=== PATIENT | female | born 1945 | race Caucasian/White ===

== ENCOUNTER 2016-10-01 15:04 | Inpatient (IN) | payer MEDICARE ==
[~2016-10-01] VITALS: Ht 157.5 cm; Wt 87.8 kg
[~2016-10-01 15:04] MED LIST: ADV250INH IH; ATOR20TA PO; DEXL60CA5 PO; LOSA100T29 PO; METO100T3 PO; ROPI0.252 PO; SODI354S PO; TIOT18CA3 IH; TRAZ-118 PO
[2016-10-01 15:32] VITALS: BP 167/78; PULSE 77; RESP 20; O2SAT 81
[2016-10-01] MEDS ORDERED: Alum-Mag Hydrox-Simeth 30 mL Suspension PO PRN (15:45)
[2016-10-01] MEDS ORDERED: Ondansetron 2 mg/mL 2 mL Inj IVPUSH PRN (15:45)
[2016-10-01] MEDS ORDERED: Polyethylene Glycol (PEG) 17 Gm Powder PO PRN (15:45)
[2016-10-01 15:46] VITALS: O2SAT 90
--- NOTE | 2016-10-01 15:53 | PCM.HPMED ---
Subjective Date of Service Oct 01, 2016 Primary Provider: Admitting Physician: Dom Osorio MD Primary Care Physician: Arsen Reyes DO Attending Physician: Dom Osorio MD Chief Complaint: Shortness of breath History of Present Illness: This is a 70 female with past medical history of COPD not on oxygen at home, hypertension, hyperlipidemia who presented initially to her primary care doctor complaining of shortness of breath for 3-4 days. Patient stated she recently had the flu and has been having hard time breathing. She stated she cannot walk more than a few steps without being short of breath. She increased her nebulizer treatment at home with no avail . She denied any chest pain, no fever, no chills. She endorses diarrhea for 2 days but has subsided since. No nausea, no vomiting but the oral intake has been poor over the last past 24 hours. At PCP office and was found to be hypoxic with an oxygen saturation in the mid 80s which improved with nebulizer and supplemental oxygen. PCP was unable to wean patient off oxygen. She would desaturate anytime she stands . She was sent to the hospital for direct admission Review of Systems: Review of systems is pertinent for shortness of breath as described above in history of present illness, diarrhea. Otherwise a comprehensive x 10 points is negative. Allergies Coded Allergies: No Known Drug Allergies (Verified Allergy, Unknown, 03/03/16) Home Medications Advair Diskus 50/250 i fuff inhaled BID , Dexlansoprazole 60 PO daily , Tiotropium 18 MCG inhaled daily, Losartan 100 PO daily, Metoprolol 100 PO BID , Dexilant, atorvastatin 40 PO daily , trazodon 100 mg PO QHS . ropinirole 0.25 daily PMH COPD, Hypertension, GERD, Hyperlipidemia Family History Primary history is reviewed and is noncontributory to the present illness Social History Hx Alcohol Use: Yes (OCCASSIONAL) Hx Substance Use: No Hx Tobacco Use: Yes (history of 100 years/ pack smoking) Living Arrangement: with Family Exam Vital Signs Vital Sign - Last Date Time Temp Pulse Resp B/P Pulse Ox O2 Delivery O2 Flow Rate FiO2 10/01/16 15:46 90 Nasal Cannula 2.00 10/01/16 15:32 36.6 77 20 167/78 Exam Gen./constitutional: Elderly female, in bed comfortably in no acute distress. Overweight HEENT: PERRL EOMI. Sclera is anicteric Neck: Supple, no JVD, no stridor, check is midline signs Mouth: Moist oral mucosa, no oral thrush Chest: Normal respiratory effort, no use of sensory muscles of respiration. Lungs: Decreased air entry bilaterally. No crackles. Bilateral expiratory wheeze. Heart: S1, S2 regular rate and written Abdomen: Soft nontender, nondistended, no palpable mass. Extremities: No edema, no cyanosis, no calf tenderness Neuro : Awake alert and oriented 3. Grossly nonfocal Skin: Normal turgor: No rash, no ulcers Lab and Diagnostics Labs CBC, metabolic panel, magnesium level ordered and are pending X-Rays, CTs and MRIs Chest x-ray done at primary care's office reviewed : No infiltrate or pneumonia Assessment & Plan 1. Acute respiratory failure with hypoxia 2. COPD exacerbation Chronic medical problems Hypertension Hyperlipidemia GERD 71 years old with sore COPD was sent to the hospital from primary care doctor's office for direct admission for COPD exacerbation and acute respiratory failure with hypoxia. Telemetry monitoring . Supplemental oxygen to keep O2 saturation ideally round 92-95 %. DuoNeb nebulizer every 6 hours Methylprednisolone e IV every 8 hours. Chest surgery was done showed no acute disease. Therefore no need for antibiotics Obtain CBC, metabolic panel, magnesium. IV hydration with normal sinus 75 mm per hour by 1 L. Patient looks dehydrated and PO intake has been quite poor in the past 24 hours Home medications reviewed and reconciled. Subcutaneous heparin subcutaneous for DVT prophylaxis Prophylaxis. Hospital stay of 2-3 is anticipated and recovery is expected GI Prophylaxis: Proton Pump Inhibitor VTE Prophylaxis: Sub-Q Heparin (Unfractionated) Resuscitation Status: CPR: Attempt Resuscitation Time spent 75 minutes Dom Osorio MD Oct 01, 2016 15:53
[2016-10-01] MEDS ORDERED: MECL-114 PO (16:06)
[2016-10-01] MEDS ORDERED: BUPR100T8 PO (16:06)
[2016-10-01] MEDS ORDERED: IBUP200C PO (16:06)
[2016-10-01] MEDS ORDERED: NALT50TA PO (16:06)
[2016-10-01] MEDS ORDERED: NIFE90TA31 PO (16:06)
[2016-10-01 16:33] LABS: BASOPHILS % (AUTO) 0.3 % (0-3); EOSINOPHILS % (AUTO) 0.1 % (0-5); MONOCYTES % (AUTO) 4.9 % (4-12); Mean Corpuscular Hemoglobin 30.1 pg (27.0-35.0); Mean Corpuscular Volume 92.9 fL (81-100); NEUTROPHILS % (AUTO) 74.9 % (40-74); Platelet Count 346 bil/L (150-400)
[2016-10-01] MEDS: Lactated Ringer's 1,000 ML IV SCH (16:46)
[2016-10-01] MEDS: MethylprednisoLONE Sodium Succinate 40 mg/mL Inj IVPUSH SCH (16:46)
[2016-10-01 17:20] LABS: Magnesium 2.1 mg/dL (1.6-2.6)
--- NOTE | 2016-10-01 17:55 | NUR ---
Admit: [place] [facility] [place] 1530 [place]. Ambulated to bed. O2 Sats RA 81%, applied 2L oxygen. Patient complained of lightheadedness and SOB. O2 sats increase to 89-90%. IVF infusing. Alert & oriented. Oriented to room and call light system. Admit and medication reconciliation completed. Requested [id number] to bring in patients own CPAP. Bed rails up x 2, bed in low and locked position, non-skid socks on for safety. Observed steady gait when assisting to BR. Asked patient to continue to call for help with assistance to BR. Patient agreed.
[2016-10-01 18:17] VITALS: BP 145/85; PULSE 76; RESP 18; O2SAT 90
[2016-10-01 18:29] LABS: APPEARANCE,URINE CLOUDY (CLEAR,HAZY); COLOR,URINE YELLOW (YELLOW); OCCULT BLOOD,URINE TRACE (NEGATIVE); UROBILINOGEN,URINE NORMAL (NORMAL)
[2016-10-01] MEDS ORDERED: Albuterol-Ipratropium 3 mL Inhalation Solution NEB SCH (20:30)
[2016-10-01 20:32] VITALS: BP 129/75; PULSE 80; RESP 18; O2SAT 93
[2016-10-01] MEDS: Fluticasone-Salmererol 250-50 Inhaler INHALATION SCH (22:24)
[2016-10-02] VITALS (8 sets, daily range): BP systolic 128–144; BP diastolic 69–83; PULSE 65–84; RESP 18; O2SAT 92–94
[2016-10-02] MEDS: MethylprednisoLONE Sodium Succinate 40 mg/mL Inj IVPUSH SCH ×2 (00:09→08:57)
--- NOTE | 2016-10-02 05:36 | NUR ---
Shift Note Assumed pt care at 2300, pt a/o x4 able to make needs known, uses CPAP with 02 at HS, on cpox sats 92-94%, pt refused nebs treatment tonight, qhrly checks done, call light in reach.
[2016-10-02] MEDS: Lactated Ringer's 1,000 ML IV SCH (05:39)
[2016-10-02] MEDS: Fluticasone-Salmererol 250-50 Inhaler INHALATION SCH ×2 (08:57→20:39)
--- NOTE | 2016-10-02 16:14 | NUR ---
Ambulation Valerie communication from MD to ambulate with Pt. VS prior were in typical range for pt. BP 150/80, HR 70's, SpO2 at 94% when at rest. Ambulated with pt around the unit with CPOX monitoring. SpO2 dropped to 81-84% with activity. Pt having SOB but able to tolerate. Pt declines needing to rest for a moment. Steady and strong on feet. VS when back in room: BP 80/60 for initial sitting, retook and shown 160/80. Consecutive BP were back to baseline, unsure if initial was an error or true and pt stabilized. HR and SpO2 back to baseline. Spoke with pt, reports that yesterday getting up to the bathroom she was very out of breath and satting in low 80s. Instructed to report SOB episodes to staff and MD updated on condition.
--- NOTE | 2016-10-02 16:58 | PCM.PNMED ---
Subjective Date of Service Oct 02, 2016 Subjective This is a 70 female with past medical history of COPD not on oxygen at home, hypertension, hyperlipidemia who presented initially to her primary care doctor complaining of shortness of breath for 3-4 days. This morning, she still reports getting "out of breath" going to the bathroom. She attributes her dyspnea to a GERD flare. She is not dyspneic at rest. She does not have fever, chills, or cough. She had nausea and vomiting prior to her current symptoms. Exam Vital Signs Vital Sign - Last Date Time Temp Pulse Resp B/P Pulse Ox O2 Delivery O2 Flow Rate FiO2 10/02/16 13:19 36.6 65 18 143/83 92 Room Air 10/02/16 00:30 2.00 Intake and Output 10/01/16 10/01/16 10/02/16 Cumulative From/Thru 15:00 23:00 07:00 10/01/16 15:36 - 10/02/16 06:39 Intake Total 200 ml 1465 ml 1665 ml Output Total 150 ml 350 ml 500 ml Balance 50 ml 1115 ml 1165 ml Intake Oral 200 ml 500 ml 700 ml IV Total 965 ml 965 ml Output Urine Total 150 ml 350 ml 500 ml # Bowel Movements 0 0 Exam Gen./constitutional: Elderly female, in bed comfortably in no acute distress. Overweight HEENT: PERRL EOMI. Sclera is anicteric Neck: Supple, no JVD, no stridor, check is midline signs Mouth: Moist oral mucosa, no oral thrush Chest: Normal respiratory effort, no use of sensory muscles of respiration. Lungs: Decreased air entry bilaterally. No rales, rhonchi, or wheezing. Heart: S1, S2 regular rate and rhythm Abdomen: Soft nontender, nondistended, no palpable mass. Extremities: No edema, no cyanosis, no calf tenderness Neuro : Awake alert and oriented 3. Grossly nonfocal Skin: Normal turgor: No rash, no ulcers IVs and Medications Medications Reviewed: Medications were reviewed in detail Lab and Diagnostics Result Diagram: 10/01/16 1618 10/01/16 1618 X-Rays, CTs and MRIs Chest x-ray done at primary care's office reviewed : No infiltrate or pneumonia Assessment & Plan 71 years old with sore COPD was sent to the hospital from primary care doctor's office for direct admission for COPD exacerbation and acute respiratory failure with hypoxia. 1. Acute respiratory failure with hypoxia and COPD exacerbation, present on admission. -Chest x-ray showed no acute disease. Therefore, no need for antibiotics for a pulmonary infection. -Telemetry monitoring -Supplemental oxygen to keep O2 saturation ideally round 88-92%. -DuoNeb nebulizer every 6 hours as needed for dyspnea or wheezing -Methylprednisolone IV switched to prednisone 40 mg once daily -Continue Advair inhaler and Spiriva inhaler -Home oxygen evaluation tomorrow 2. Urinary tract infection, acute, present on admission. -UA showed positive nitrite and moderate leukocyte esterase. Urine culture preliminary growth for gram negative rods. -Start Keflex 500 mg BID -IV hydration with normal sinus 75 mm per hour by 1 L. Patient looks dehydrated and PO intake has been quite poor in the past 24 hours Chronic medical problems Hypertension Hyperlipidemia GERD Vertigo Subcutaneous heparin subcutaneous for DVT prophylaxis Prophylaxis. Possible discharge home tomorrow pending home oxygen evaluation and continue improvement. GI Prophylaxis: Proton Pump Inhibitor VTE Prophylaxis: Sub-Q Heparin (Unfractionated) VTE Mechanical Devices: Intermittant Pneumatic CD Resuscitation Status: CPR: Attempt Resuscitation Attending Statement The patient was seen and examined together with Resident / House-staff on and I agree with the history, exam and plan as outlined in the note above. Racquel Rodriguez DO Oct 02, 2016 16:38 Mike Goldberg Oct 02, 2016 17:46
[2016-10-02] MEDS ORDERED: Albuterol-Ipratropium 3 mL Inhalation Solution NEB PRN (17:00)
[2016-10-03 00:32] VITALS: BP 134/61; PULSE 59; RESP 18; O2SAT 90
[2016-10-03 05:23] VITALS: BP 129/61; PULSE 61; RESP 18; O2SAT 91
--- NOTE | 2016-10-03 06:27 | NUR ---
O2 saturation 94% on RA in bed, CPAP used on RA retaining sat > 92%.
[2016-10-03] MEDS ORDERED: Pantoprazole 40 mg ER24 Tablet PO SCH (06:30)
[2016-10-03 07:13] LABS: BASOPHILS % (AUTO) 0.2 % (0-3); EOSINOPHILS % (AUTO) 0.2 % (0-5); MONOCYTES % (AUTO) 8.5 % (4-12); Mean Corpuscular Hemoglobin 30.5 pg (27.0-35.0); NEUTROPHILS % (AUTO) 65.3 % (40-74); Platelet Count 333 bil/L (150-400)
[2016-10-03 07:22] VITALS: PULSE 54
[2016-10-03] MEDS ORDERED: NIFEdipine 30 mg ER24 Tablet PO SCH (08:30)
[2016-10-03] MEDS ORDERED: predniSONE 20 mg Tablet PO SCH (08:30)
[2016-10-03] MEDS ORDERED: Tiotropium 18mcg/Cap 5 Capsule Inhaler Kit INHALATION SCH ×2 (08:30→10:30)
[2016-10-03 09:38] VITALS: BP 132/68; PULSE 63; RESP 18; O2SAT 93
[2016-10-03] MEDS: Fluticasone-Salmererol 250-50 Inhaler INHALATION SCH (10:19)
[2016-10-03] MEDS ORDERED: Fluticasone-Salmererol 250-50 Inhaler INHALATION SCH (10:30)
[2016-10-03] MEDS ORDERED: PRED-508 PO (12:17)
[2016-10-03] MEDS ORDERED: CEPH500C PO (12:19)
--- NOTE | 2016-10-03 12:22 | PCM.DIMED ---
Olivia Chang DO 10/03/16 1222: Discharge Instructions Date of Service Oct 03, 2016 Dates of Hospitalization Oct 01, 2016 at 15:04 Discharge Diagnosis Discharge Diagnosis 1. Acute respiratory failure with hypoxia and COPD exacerbation, present on admission. 2. Urinary tract infection, acute, present on admission. Medication Instructions Please finish your Prednisone as prescribed. Please finish your antibiotics as prescribed. Diet Heart Healthy Activity Limited until seen by PCP Call your provider Fever or Chills, Shortness of breath Patient Instructions Please follow up with your PCP in about 1 week. Please check on the IV site that was injured. It does not look infected at this time but if there is more redness, it if starts to feel hot to the touch, if you develop fevers, chills, or severe pain in that arm seek medication attention immediately. Please complete your antibiotics. Follow-up Provider: Arsen Reyes DO Follow-up with PCP in: 1 week James Travis MD 10/03/16 1259: Discharge Instructions Attending's Statement The patient was seen and examined together with Dr. Chang on 10/03 and I agree with the history, exam and plan as outlined in the note above. Olivia Chang DO Oct 03, 2016 12:22 James Travis MD Oct 03, 2016 12:59
--- NOTE | 2016-10-03 12:59 | NUR ---
Discharge Patient departed unit via wheelchair, accompanied by staff and family. Patient alert and oriented. Patient able to ambulate independently on unit-O2 sats initially dropped to 82% then gradually increased to 89% on room air, O2 sats increased to 93% at rest on room air. Patient nutritional intake, output, oxygen saturations, mobility and gas exchange adequate at discharge. Patient does not qualify for home O2. Discharge instructions/medications reviewed with patient/family prior to discharge. All questions addressed. Patient belongings, and discharge instructions in hand. Prescriptions electronically sent to [facility] in [place].
--- NOTE | 2016-10-03 19:12 | PCM.DC.MED ---
Discharge Summary Date of Service Oct 03, 2016 Dates of Hospitalization Date of Hospital Admission Oct 01, 2016 at 15:04 Date of Discharge: Oct 03, 2016 Providers: Admitting Physician: Dom Osorio MD Primary Care Physician: Arsen Reyes DO Attending Physician: Dom Osorio MD Diagnosis at Time of Discharge Diagnosis at Time of Discharge 1. Acute respiratory failure with hypoxia and COPD exacerbation, present on admission. 2. Urinary tract infection, acute, present on admission. Procedures XRay, CTs & MRIs Chest x-ray done at primary care's office reviewed : No infiltrate or pneumonia Brief History From Dr. Osorio's H and P: "This is a 70 female with past medical history of COPD not on oxygen at home, hypertension, hyperlipidemia who presented initially to her primary care doctor complaining of shortness of breath for 3-4 days. Patient stated she recently had the flu and has been having hard time breathing. She stated she cannot walk more than a few steps without being short of breath. She increased her nebulizer treatment at home with no avail . She denied any chest pain, no fever, no chills. She endorses diarrhea for 2 days but has subsided since. No nausea, no vomiting but the oral intake has been poor over the last past 24 hours. At PCP office and was found to be hypoxic with an oxygen saturation in the mid 80s which improved with nebulizer and supplemental oxygen. PCP was unable to wean patient off oxygen. She would desaturate anytime she stands . She was sent to the hospital for direct admission." Hospital Course 71 years old with sore COPD was sent to the hospital from primary care doctor's office for direct admission for COPD exacerbation and acute respiratory failure with hypoxia. 1. Acute respiratory failure with hypoxia and COPD exacerbation, present on admission. -Chest x-ray showed no acute disease. Therefore, no need for antibiotics for a pulmonary infection. -Telemetry monitoring -Supplemental oxygen to keep O2 saturation ideally round 88-92%. -DuoNeb nebulizer every 6 hours as needed for dyspnea or wheezing provided. -Methylprednisolone IV switched to prednisone 40 mg once daily for 5 more days. -Continued Advair inhaler and Spiriva inhaler -Home oxygen evaluation tomorrow 2. Urinary tract infection, acute, present on admission. -UA showed positive nitrite and moderate leukocyte esterase. Urine culture preliminary growth for gram negative rods. -Started Keflex 500 mg BID -IV hydration with normal saline 75 mm per hour by 1 L. Chronic medical problems Hypertension Hyperlipidemia GERD Vertigo Subcutaneous heparin subcutaneous for DVT prophylaxis Prophylaxis. Exam Vital Signs (Last) Date Time Temp Pulse Resp B/P Pulse Ox O2 Delivery O2 Flow Rate FiO2 10/03/16 09:38 36.7 63 18 132/68 93 CPAP 10/02/16 00:30 2.00 Exam Gen/constitutional: Elderly female, in bed comfortably in no acute distress. Overweight HEENT: PERRL EOMI. Sclera is anicteric Neck: Supple, no JVD, no stridor, check is midline signs Mouth: Moist oral mucosa, no oral thrush Chest: Normal respiratory effort, no use of sensory muscles of respiration. Lungs: Decreased air entry bilaterally. No rales, rhonchi, or wheezing. Heart: S1, S2 regular rate and rhythm Abdomen: Soft nontender, nondistended, no palpable mass. Extremities: No edema, no cyanosis, no calf tenderness Neuro : Awake alert and oriented 3. Grossly nonfocal Skin: Normal turgor: No rash, no ulcers Test 10/01/16 16:18 10/01/16 17:59 10/02/16 07:40 10/03/16 06:46 Magnesium Level 2.1mg/dL (1.6-2.6) Hold August Top Tube Received (Received) Urine Color Yellow (YELLOW) Urine Appearance Cloudy (CLEAR,HAZY) Urine pH 6.0 (5.0-8.0) Urine Specific [place] 1.005 (1.003-1.035) Urine Protein Negativemg/dL (NEG,TRACE) Urine Glucose (UA) Negativemg/dL (NEGATIVE) Urine Ketones Negativemg/dL (NEGATIVE) Urine Occult Blood Trace (NEGATIVE) Urine Nitrite Positive (NEGATIVE) Urine Bilirubin Negative (NEGATIVE) Urine Urobilinogen Normalmg/dL (NORMAL) Urine Leukocyte Esterase Moderate (NEGATIVE) Urine RBC 0-2/hpf (0-2) Urine WBC >50/hpf (0-5) Urine Epithelial Cells Moderate/hpf (NONE-MOD) Urine Crystals None seen (NONE SEEN) Urine Bacteria Many/hpf (NONE-FEW) Urine Hyaline Casts None/lpf (NONE) Urine Granular Casts None seen (NONE SEEN) Urine Waxy Casts None seen (NONE SEEN) Urine Red Blood Cell Casts None seen (NONE SEEN) Urine White Blood Cell Casts None seen (NONE SEEN) Urine Mucus None seen (None Seen) Urine Trichomonas None seen (NONE SEEN) Urine Yeast None (NONE SEEN) Urinalysis Comment None Urine Culture Reflexed Indicated Procalcitonin 0.04ng/mL (0.00-0.08) White Blood Count 10.8th/mm3 (3.8-10.1) Red Blood Count 4.63mil/mm3 (3.90-5.20) Hemoglobin 14.1g/dL (12.0-15.6) Hematocrit 43.5% (35.0-46.0) Mean Corpuscular Volume 94.0fL (81-100) Mean Corpuscular Hemoglobin 30.5pg (27.0-35.0) Mean Corpuscular Hemoglobin Concent 32.4% (32.0-37.0) Red Cell Distribution Width 13.9% (12.3-15.4) Platelet Count 333bil/L (150-400) Neutrophils (%) (Auto) 65.3% (40-74) Lymphocytes (%) (Auto) 25.3% (14-46) Monocytes (%) (Auto) 8.5% (4-12) Eosinophils (%) (Auto) 0.2% (0-5) Basophils (%) (Auto) 0.2% (0-3) Sodium Level 141mEq/L (134-144) Potassium Level 3.9mEq/L (3.5-5.2) Chloride Level 104mEq/L (97-108) Carbon Dioxide Level 23mmol/L (18-29) Blood Urea Nitrogen 17mg/dL (8-27) Creatinine 0.91mg/dL (0.57-1.00) Estimat Glomerular Filtration Rate 87mL/min (>59) Glucose Level 95mg/dL (60-99) Calcium Level 9.3mg/dL (8.5-10.1) Total Bilirubin 0.3mg/dL (0.0-1.2) Aspartate Amino Transf (AST/SGOT) 29U/L (0-50) Alanine Aminotransferase (ALT/SGPT) 25U/L (0-32) Alkaline Phosphatase 97U/L (25-165) Total Protein 6.5g/dL (6.4-8.4) Albumin 4.0g/dL (3.4-5.0) Discharge Medications Discharge Medications Atorvastatin (Lipitor) 20 Mg Tablet 20 MG PO DAILY (Reported) Cephalexin (Cephalexin) 500 Mg Capsule 500 MG PO BID Prescribed by: KELLEY CHANG DO Dexlansoprazole ER (Dexilant) 60 Mg Capsule 60 MG PO DAILY (Reported) Fluticasone/Salmeterol (Advair 250-50 Diskus) 60 Puff/Inh Disk 1 PUFF IH BID ( Reported) Ibuprofen (Ibuprofen) 200 Mg Capsule 200 MG PO DAILY (Reported) Losartan Potassium (Losartan Potassium) 100 Mg Tablet 100 MG PO DAILY (Reported ) Meclizine (Bonine) 25 Mg Tab.chew 25 MG PO DAILY (Reported) Metoprolol Tartrate (Metoprolol Tartrate) 100 Mg Tablet 100 MG PO BID (Reported ) Naltrexone (Naltrexone) 50 Mg Tablet 12.5 MG PO DAILY (Reported) Nifedipine ER (Nifedipine ER) 90 Mg Tab.er.24 90 MG PO DAILY (Reported) Prednisone (Deltasone) 20 Mg Tablet 40 MG PO DAILY Prescribed by: KELLEY CHANG DO Ropinirole (Ropinirole) 0.25 Mg Tablet 0.25 MG PO DAILY (Reported) Tiotropium [place] (Spiriva) 18 Mcg Cap.w.dev 18 MCG IH DAILY (Reported) Additional med instructions Please finish your Prednisone as prescribed. Please finish your antibiotics as prescribed. Followup Plan Discharge Diet: Heart Healthy Discharge Activity: Limited until seen by PCP Patient Instructions Please follow up with your PCP in about 1 week. Please check on the IV site that was injured. It does not look infected at this time but if there is more redness, it if starts to feel hot to the touch, if you develop fevers, chills, or severe pain in that arm seek medication attention immediately. Please complete your antibiotics. Follow-up Provider: Arsen Reyes DO Follow-up with PCP in: 1 week Attending Statement The patient was seen and examined together with Dr. Chang on 10/03 and I agree with the history, exam and plan as outlined in the note above Kelley Chang DO Oct 03, 2016 19:12 James Travis MD Oct 03, 2016 23:27
== END 2016-10-03 13:02 | disposition home or self-care (01) | DRG 190 ==
LOC: MPC 15:04
PROVIDERS: ADMIT Internal Medicine; ATTEND Internal Medicine
DX: J44.1 Chronic obstructive pulmonary disease with (acute) exacerbation (principal); J96.01 Acute respiratory failure with hypoxia; N39.0 Urinary tract infection, site not specified; B96.89 Other specified bacterial agents as the cause of diseases classified elsewhere

== ENCOUNTER → 2017-04-08 | Day surgery (SDC) | payer MEDICARE ==
[~2017-04-08] MED LIST changes: +CEPH500C PO; +IBUP200C PO; +Lidocaine Topical 2% 30 mL Jelly ONE; +MECL-114 PO; +NALT50TA PO; +NIFE90TA31 PO; +PRED-508 PO; -SODI354S PO; -TRAZ-118 PO
== END | disposition home or self-care (01) ==
LOC: END 03-17 01:46
PROVIDERS: ATTEND Internal Medicine
DX: R13.10 Dysphagia, unspecified (principal); Z53.8 Procedure and treatment not carried out for other reasons

== ENCOUNTER → 2017-04-09 | Day surgery (SDC) | payer MEDICARE ==
[~2017-04-09] MED LIST changes: -Lidocaine Topical 2% 30 mL Jelly ONE
== END | disposition home or self-care (01) ==
LOC: END 00:40
PROVIDERS: ATTEND Internal Medicine
DX: K21.9 Gastro-esophageal reflux disease without esophagitis (principal)